=== PATIENT | male | born 1955 | race Caucasian/White ===

== ENCOUNTER 2018-01-20 02:44 | Day surgery (SDC) | payer OTHER ==
[~2018-01-20 02:44] MED LIST: Aspir 8181 MG PO; CYCL10 PO; HYDACE5 PO; Simvastatin20 MG PO
== END 2018-01-20 22:45 | disposition home or self-care (01) ==
LOC: CT 02:44
DX: E78.4 Other hyperlipidemia (principal); R91.1 Solitary pulmonary nodule; Z79.82 Long term (current) use of aspirin; Z79.899 Other long term (current) drug therapy
CPT/HCPCS: 75571

== ENCOUNTER 2018-01-20 07:39 | Day surgery (SDC) | payer OTHER | END 2018-01-20 22:45 | disposition home or self-care (01) | LOC: CT 07:39 | DX: K52.9 Noninfective gastroenteritis and colitis, unspecified (principal) | CPT/HCPCS: 74177; Q9967 ==

== ENCOUNTER 2019-08-05 09:29 | Emergency (ER) | payer OTHER ==
[~2019-08-05] VITALS: Ht 177.8 cm; Wt 83.9 kg
== END 2019-08-05 10:16 | disposition home or self-care (01) ==
LOC: ER 09:29
DX: J06.9 Acute upper respiratory infection, unspecified (principal)
CPT/HCPCS: 99283